=== PATIENT | male | born 1985 | race Caucasian/White ===

== ENCOUNTER 2021-05-21 09:05 | Emergency (ER) | payer OTHER ==
[~2021-05-21] VITALS: Ht 185.4 cm; Wt 81.6 kg
[2021-05-21] MEDS ORDERED: NORFLEX100MG PO (10:55)
[2021-05-21] MEDS ORDERED: KETO10TA2 PO (10:55)
== END 2021-05-21 11:20 | disposition home or self-care (01) ==
LOC: ER 09:05
DX: M54.9 Dorsalgia, unspecified (principal); M54.2 Cervicalgia; M47.812 Spondylosis without myelopathy or radiculopathy, cervical region; M19.90 Unspecified osteoarthritis, unspecified site

== ENCOUNTER → 2021-08-16 | Outpatient (CLI) | payer OTHER ==
[~2021-08-16] MED LIST: KETO10TA2 PO; NORFLEX100MG PO
== END | disposition home or self-care (01) ==
LOC: RAD 15:14
PROVIDERS: ATTEND Family Medicine
DX: M25.561 Pain in right knee (principal)

== ENCOUNTER 2021-08-21 12:53 | Outpatient (CLI) | payer OTHER | END 2021-08-21 12:55 | disposition home or self-care (01) | LOC: LAB 12:53 | DX: I73.9 Peripheral vascular disease, unspecified (principal) ==

== ENCOUNTER 2021-12-02 09:15 | Outpatient (CLI) | payer OTHER | END 2021-12-02 09:16 | disposition home or self-care (01) | LOC: LAB 09:15 | DX: R06.9 Unspecified abnormalities of breathing (principal); M32.9 Systemic lupus erythematosus, unspecified; M10.00 Idiopathic gout, unspecified site; D64.9 Anemia, unspecified ==

== ENCOUNTER → 2022-03-30 | Outpatient (CLI) | payer OTHER | END | disposition home or self-care (01) | LOC: LAB 16:35 | DX: Z20.818 Contact with and (suspected) exposure to other bacterial communicable diseases (principal); Z20.828 Contact with and (suspected) exposure to other viral communicable diseases ==